=== PATIENT | male | born 1970 | race Caucasian/White ===

== ENCOUNTER 2018-01-19 13:05 | Emergency (ER) | payer BC ==
[~2018-01-19] VITALS: Ht 185.4 cm; Wt 92.3 kg
[2018-01-19] MEDS ORDERED: LEXAPRO 10MG10 MG PO (13:17)
[2018-01-19 13:28] LABS: COLLECTION METHOD CLEAN CATCH
[2018-01-19 13:34] LABS: MUCOUS Present /lpf; PH 5 (5-8); SQUAMOUS EPITHELIAL None Seen /hpf; URINE APPEARANCE Clear; URINE BACTERIA None Seen /hpf; URINE BILIRUBIN Negative (NEGATIVE); URINE BLOOD Negative (NEGATIVE); URINE COLOR Yellow; URINE GLUCOSE Negative (NEGATIVE); URINE KETONE 1+ (NEGATIVE); URINE LEUKOCYTE ESTERASE Trace (NEGATIVE); URINE NITRATE Negative (NEGATIVE); URINE PROTEIN(semi-quant) Negative (NEGATIVE); URINE RBC 0-2 /hpf; URINE UROBILINOGEN Negative (NEGATIVE)
[2018-01-19 13:42] LABS: BASO % 0.6 % (0.0-2.0); EOS % 0.1 % (0-4.0); GRAN # 5.3 (1.4-6.5); GRAN % 78.7 % (42.2-75.2); HEMATOCRIT 46.3 % (42.0-52.0); HEMOGLOBIN 15.8 g/dl (13.5-18.0); LYMPH # 0.9 (1.2-3.4); LYMPH % 13.8 % (20.0-51.0); MEAN CELL VOLUME 97 fl (80.0-100.0); MEAN CORPUSCULAR HEMOGLOBIN 33 pg (27.0-31.0); MEAN CORPUSCULAR HGB CONC 34 g/dl (33.0-37.0); MEAN PLATELET VOLUME 11.3 fl (7.4-10.4); MONO # 0.4 (0.1-0.6); MONO % 6.5 % (1.7-9.3); PLATELET COUNT 164 K/mm3 (130-400); RED BLOOD COUNT 4.78 M/mm3 (4.20-5.60); REDCELL DISTRIBUTION WIDTH-CV 13.2 % (11.5-14.5)
[2018-01-19 13:43] LABS: TRICYCLIC ANTIDEPRESS URINE NEGATIVE
[2018-01-19 13:51] LABS: ALANINE AMINOTRANSFERASE 80 U/L (21-72); ALBUMIN 4.7 gm/dL (3.5-5.0); ALCOHOL(ethanol),MEDICAL 229 mg/dL; ALKALINE PHOSPHATASE 82 U/L (50-136); ANION GAP 20 mmol/L (7-16); AST,SGOT 87 U/L (15-37); BILIRUBIN,TOTAL 0.6 mg/dL (0.0-1.0); BLOOD UREA NITROGEN 15 mg/dL (9-20); CALCIUM 10.6 mg/dL (8.4-10.2); CARBON DIOXIDE 24 mmol/L (22-30); CHLORIDE 100 mmol/L (98-107); CREATININE, serum 0.89 mg/dL (0.66-1.25); GLUCOSE 120 mg/dL (74-106); SODIUM 144 mmol/L (137-145); TOTAL PROTEIN 8.9 gm/dL (6.4-8.2)
[2018-01-19 13:55] LABS: ACETAMINOPHEN < 10 ug/mL (10-30); SALICYLATE < 1.0 mg/dL
[2018-01-19] MEDS ORDERED: CIPRO 250MG TA250 MG PO (15:46)
[2018-01-20 00:14] VITALS: BP 142/84; PULSE 80; TEMP 98.4
== END 2018-01-20 00:45 ==
LOC: COL.ER 13:05
PROVIDERS: Nurse Practitioner
DX: T14.91XA Suicide attempt, initial encounter (principal); F10.129 Alcohol abuse with intoxication, unspecified; F32.9 Major depressive disorder, single episode, unspecified; N39.0 Urinary tract infection, site not specified; E10.9 Type 1 diabetes mellitus without complications; F41.9 Anxiety disorder, unspecified; F17.200 Nicotine dependence, unspecified, uncomplicated; Y90.7 Blood alcohol level of 200-239 mg/100 ml; Z96.41 Presence of insulin pump (external) (internal)
CPT/HCPCS: J2405; J7030

== ENCOUNTER 2022-05-09 07:31 | Day surgery (SDC) | payer BC ==
[~2022-05-09] VITALS: Ht 185.4 cm; Wt 91.5 kg
[~2022-05-09 07:31] MED LIST: CIPRO 250MG TA250 MG PO; LEXAPRO 10MG10 MG PO
[2022-05-09] MEDS ORDERED: ACCUPRIL40MGTAB PO (07:56)
[2022-05-09] MEDS ORDERED: HCTZ 25MG TAB25 MG PO (07:56)
[2022-05-09] MEDS ORDERED: ONE-A-DAY ESSE1 EACH PO (07:57)
[2022-05-09] MEDS ORDERED: NOVOLOG 100U100 U/M1 SQ (07:58)
[2022-05-09 08:02] VITALS: BP 113/71; PULSE 81; TEMP 97.8
--- NOTE | 2022-05-09 08:28 | NUR ---
0825 - RN notified lift mechanic of PT blood sugar of 298. Penny RN notified CRYSTALLIZER OPERATOR via telephone and stated new orders recieved.
[2022-05-09 09:33] VITALS: BP 97/60; PULSE 89; TEMP 97
[2022-05-09 09:48] VITALS: BP 104/96; PULSE 73
[2022-05-09 10:03] VITALS: BP 100/69; PULSE 76
--- NOTE | 2022-05-09 10:15 | NUR ---
0933 - PT arrives from procedure and was settled by Penny FLETCHER. 1010 - VSS. PT expressed desire to be discharged. PT denies pain and nausea.
--- NOTE | 2022-05-09 10:28 | NUR ---
1025 - IV discontinued. Catheter tip intact. Pressure bandage applied. No redness or swelling. DC instructions and educatonal material reveiwed with the PT who verbalized understanding the material. PT denies pain and nasuea. NO vomiting. PT refused RN assistance changing into personal clothes. Call taylor remains within reach if needed. Visitor remains present.
--- NOTE | 2022-05-09 10:37 | NUR ---
0901 - PT arrives from procedure and was settled by Penny FLETCHER 1015 - Written report obtained. PT is stable. VSS. PT denies pain and nasuea. Call taylor is within reach if needed.
--- NOTE | 2022-05-09 10:44 | NUR ---
PT dismissed from endo via wheelchair to the PT entrence by Candida FLETCHER. PT has DC packet and personal belonings and was transferred into the care of Neisha, who is driving private car.
== END 2022-05-09 10:45 | disposition home or self-care (01) ==
LOC: SDCO 07:31
DX: Z12.11 Encounter for screening for malignant neoplasm of colon (principal); D12.0 Benign neoplasm of cecum; Z87.891 Personal history of nicotine dependence
CPT/HCPCS: J2704; J3010; J7030